=== PATIENT | female | born 1965 | race Caucasian/White ===

== ENCOUNTER 2017-02-04 11:15 | Emergency (ER) | payer OTHER ==
[~2017-02-04] VITALS: Ht 162.6 cm; Wt 60.2 kg
[2017-02-04 11:18] VITALS: TEMP 36.8; Ht 162.6 cm; Wt 60.2 kg
[2017-02-04] MEDS ORDERED: ONDANSETRON INJ 2 MG/ML 2 ML VIAL IV STA (12:15)
[2017-02-04] MEDS ORDERED: SODIUM CHLORIDE 0.9% 1000ML 1,000 ML IV ONE (12:15)
[2017-02-04] MEDS ORDERED: ALPR1TAB3 PO (12:25)
[2017-02-04] MEDS ORDERED: TRAZ100T29 PO (12:25)
[2017-02-04 12:40] LABS: BASO % 0.4 %; BASO ABS # 0.03 K/uL (0-0.2); COMPLETE YES; EOS % 1.8 %; HEMATOCRIT 39.6 % (37-47); IG% 0.1 %; LYMPH % 25.9 %; LYMPH ABS # 2.01 K/uL (1.2-3.4); MEAN CELL VOLUME 94.3 fL (80-100); MEAN CORPUSCULAR HEMOGLOBIN 32.1 pg (25-34); MEAN CORPUSCULAR HGB CONC 34.1 g/dl (32-36); MEAN PLATELET VOLUME 10.4 fL (7.4-10.4); MONO % 8.5 %; NEUT % 63.3 %; PLATELET COUNT 275 K/uL (130-400); WHITE BLOOD COUNT 7.76 K/uL (4.8-10.8)
[2017-02-04 12:55] LABS: ALT/SGPT 22 U/L (12-78); AST/SGOT 21 U/L (15-37); BLOOD UREA NITROGEN 15 mg/dl (7-18); BUN/CREATININE RATIO 22.1 (10-20); CALCIUM 8.5 mg/dl (8.5-10.1); CARBON DIOXIDE 25 mmol/L (21-32); CHLORIDE 108 mmol/L (98-107); CREATININE 0.67 mg/dl (0.60-1.20); GLUCOSE 88 mg/dl (70-99); MAGNESIUM 2.5 mg/dl (1.8-2.4); POTASSIUM 3.6 mmol/L (3.5-5.1); SODIUM 141 mmol/L (136-145)
[2017-02-04 13:02] LABS: ALKALINE PHOSPHATASE 52 U/L (45-117)
[2017-02-04 13:08] LABS: URINE APPEARANCE CLEAR (CLEAR); URINE BILIRUBIN NEG (NEG); URINE COLOR YELLOW; URINE NITRITE NEG (NEG); URINE PH 5.5 (4.5-7.5); URINE SPECIFIC GRAVITY 1.023 (1.000-1.030); UROBILINOGEN NEG (NEG)
[2017-02-04 13:25] LABS: MANUAL MICROSCOPIC REQUIRED? NO; REVIEW REQ? NO
[2017-02-04] MEDS ORDERED: ACETAMINOPHEN 500 MG TAB PO STA (13:45)
--- NOTE | 2017-02-04 14:26 | DIAGNOSTIC IMAGING REPORT ---
CT HEAD WITHOUT CONTRAST (CT) CLINICAL HISTORY: Headache, right arm tremor, nausea and vomiting, hypoglycemia. COMPARISON STUDY: No previous studies for comparison. TECHNIQUE: Axial CT of the brain is performed from the vertex to the skull base. IV contrast was not administered for this examination. CT DOSE: 638.56 mGycm FINDINGS: No intra or extra-axial mass lesions are visualized. There is no CT evidence of acute cortical infarction. There is no evidence of midline shift. There is no acute hemorrhage. No calvarial fractures are visualized. There is no evidence of pathologic ventricular dilatation. There is no evidence of acute sinusitis IMPRESSION: Normal noncontrast head CT for age. Electronically signed by: Sebastian Pleitez M.D. 02/04/2017 2:24 PM Dictated Date/Time: 02/04/2017 2:23 PM
[2017-02-04] MEDS ORDERED: ONDA4TAB46 PO (15:25)
[2017-02-04 16:11] VITALS: BP 110/70; PULSE 64; O2SAT 96
--- NOTE | 2017-02-04 19:40 | EMERGENCY ROOM VISIT NOTE ---
ED Visit Note First contact with patient: 11:41 Chief Complaint: Low blood sugar. History of Present Illness: Ms. Turner is a 51-year-old white female who ambulates into the ED with multiple complaints of hypoglycemia, headache, nausea , vomiting, right upper extremity tremors. Historically patient is from the [facility] and is visiting her who recently took a job in this area. She reports she hasn't been seen recently at [facility], approximately one month ago, for complaints of headache, fatigue, right arm/hand weakness. After testing it was felt that she had a cervical radiculopathy. [place] [facility] requested her insurance to perform an MRI and they refused. She has not followed up with her primary care provider since this ED visit. Additionally patient goes on to report that she has a history of headaches for over a year. She was seen by her PCP and a scan of her brain was done; she does not remember if it was an MRI or CT scan and was reported as normal. She reports her primary care provider felt she might have an aneurysm which was not shown on her imaging study. Patient goes on to report that she continues to feel tired and fatigued since her last ED visit. 4 days ago she drove into the area and after arriving at her hotel her fatigue increased and she became nauseated and has had multiple episodes of vomiting over the last 4 days. She also reports with her vomiting she developed a right arm tremor that has been constant. She goes on to report that she is having a bifrontal headache. She has difficulty describing her discomfort. She rates her discomfort 6/10. The pain is nonradiating. This is not the worst headache of her life. This is not similar to her previous headaches. She has not taken any medications for pain or nausea/vomiting prior to arrival at the hospital. Her pain has been constant but has slightly waxed and waned in intensity. She continues to have her symptoms as noted above but also reports that with nausea and vomiting she also intermittently has had diaphoresis and she feels when she is walking she is leaning towards the left and feels like her balance is unstable.. Additionally she reports she has noted over the last few weeks approximately one hour after eating she checks her blood sugar; is in type II diabetic , and she describes her blood sugar levels as low. She reports she took it today before she was seen at the local urgent care center and it was 62. She denies vijay fevers, skin eruptions, skin color changes, dizziness, recent head trauma, visual changes, hearing changes, difficulty speaking, difficulty swallowing, difficulty coordinating body movements, neck pain/stiffness, upper respiratory tract symptoms, cough, wheezing, shortness of breath, palpitations, orthopnea, dependent edema, abdominal pain, diarrhea, constipation, rectal bleeding, black/tarry stools, urinary symptoms, hematuria, extremity weakness/ numbness/tingling. Review of Systems: As noted above in history of present illness. All body systems were reviewed and found to be negative as noted above. Past Medical History: As previously noted, borderline hypertension, asthma, bronchitis, seizure disorder gastric reflux, dyslipidemia, joint pains, posttraumatic stress disorder, depression, anxiety and status post hysterectomy. Current Medications: Trazodone, Xanax. Allergies to Medications: IV contrast agents, Bactrim, valproic acid. Social History: Patient is not employed; she feels safe in her home environment ; she admits to tobacco and alcohol use. Physical Examination: Vital Signs: Date Time Temp Pulse Resp B/P (MAP) Pulse Ox O2 Delivery O2 Flow Rate FiO2 02/04/17 16:11 64 18 110/70 96 02/04/17 14:39 75 16 130/95 97 Room Air 78 133/95 77 142/74 02/04/17 14:39 78 16 130/95 97 Room Air 02/04/17 12:41 77 16 136/80 02/04/17 11:18 36.8 96 20 157/94 96 Room Air GENERAL: 51-year-old female in mild distress due to symptoms, nontoxic-appearing , afebrile and hemodynamically stable. NEUROLOGICAL: Awake, alert and oriented to person, place and time. Answering questions appropriately and following commands. Normal gait. Good hand eye coordination. No focal motor or sensory deficits. Cranial nerves II through XII grossly intact. Pronator drift test negative. Good short-term and long- term recall. Able to spell backwards. SKIN: Warm, dry and pink. No soft tissue eruptions or trauma noted. HEENT: Atraumatic and normocephalic. No erythema or tenderness over the frontal or maxillary sinuses. External ears are nontender. Auditory canals are pink and patent. Tympanic membranes are pearly grant with normal light. PERRLA. EOMI without nystagmus. Sclera white and conjunctiva pink. Funduscopic examination is unremarkable with a normal-appearing optic disc and no signs of increased intracranial pressure. No drainage from naris. Airway is patent. Pharynx is nonerythematous or edematous. Speech normal. No lymphadenopathy. Trachea midline. No jugular venous distention. No carotid bruits. BACK: No tenderness over the bony cervical and thoracic spine. Full range of motion of the cervical spine. No meningismus. No CVA tenderness. THORAX: Lungs sounds are clear to auscultation and equal bilaterally with symmetrical chest wall. No wheezing, rales or rhonchi. No crepitus, tenderness , subcutaneous air or deformities noted. HEART: Regular rate and rhythm. No gallops, rubs or murmurs are appreciated. ABDOMEN: Flat, soft and nontender. Positive bowel sounds in all quadrants. No guarding, rigidity or organomegaly. EXTREMITIES: Moves all extremities well on command and with purpose. All distal neurovascular statuses are intact and equal bilaterally. No calf tenderness or cords. 4/5 muscle strength in all movements of the shoulder, elbow, forearm, wrists and hands. 4/5 muscle strength in all movements of the hip, knee, ankle and feet. Patient does have a tremor of the right upper extremity from the elbow to the hand. The tremor does resolve during muscle strength testing and intermittently when patient is distracted by questions or other physical examination but then returns. ED Course: Patient is assessed as noted above. Patient's medication list was reviewed. Laboratory testing: Test 02/04/17 11:50 02/04/17 12:20 02/04/17 12:25 02/04/17 13:35 Range/Units Bedside Glucose 92 94 70-90 mg/dl Urine Color YELLOW Urine Appearance CLEAR CLEAR Urine pH 5.5 4.5-7.5 Urine Specific [place] 1.023 1.000-1.030 Urine Protein NEG NEG Urine Glucose (UA) NEG NEG Urine Ketones NEG NEG Urine Occult Blood NEG NEG Urine Nitrite NEG NEG Urine Bilirubin NEG NEG Urine Urobilinogen NEG NEG Urine Leukocyte Esterase NEG NEG White Blood Count 7.76 4.8-10.8 K/uL Red Blood Count 4.20 4.2-5.4 M/uL Hemoglobin 13.5 12.0-16.0 g/dL Hematocrit 39.6 37-47 % Mean Corpuscular Volume 94.3 80-100 fL Mean Corpuscular Hemoglobin 32.1 25-34 pg Mean Corpuscular Hemoglobin Concent 34.1 32-36 g/dl Platelet Count 275 130-400 K/uL Mean Platelet Volume 10.4 7.4-10.4 fL Neutrophils (%) (Auto) 63.3 % Lymphocytes (%) (Auto) 25.9 % Monocytes (%) (Auto) 8.5 % Eosinophils (%) (Auto) 1.8 % Basophils (%) (Auto) 0.4 % Neutrophils # (Auto) 4.91 1.4-6.5 K/uL Lymphocytes # (Auto) 2.01 1.2-3.4 K/uL Monocytes # (Auto) 0.66 0.11-0.59 K/uL Eosinophils # (Auto) 0.14 0-0.5 K/uL Basophils # (Auto) 0.03 0-0.2 K/uL RDW Standard Deviation 47.6 36.4-46.3 fL RDW Coefficient of Variation 13.9 11.5-14.5 % Immature Granulocyte % (Auto) 0.1 % Immature Granulocyte # (Auto) 0.01 0.00-0.02 K/uL Sodium Level 141 136-145 mmol/L Potassium Level 3.6 3.5-5.1 mmol/L Chloride Level 108 98-107 mmol/L Carbon Dioxide Level 25 21-32 mmol/L Anion Gap 8.0 3-11 mmol/L Blood Urea Nitrogen 15 7-18 mg/dl Creatinine 0.67 0.60-1.20 mg/dl Est Creatinine Clear Calc Drug Dose 87.8 ml/min Estimated GFR () 119.6 Estimated GFR (Non- 103.2 BUN/Creatinine Ratio 22.1 10-20 Random Glucose 88 70-99 mg/dl Calcium Level 8.5 8.5-10.1 mg/dl Magnesium Level 2.5 1.8-2.4 mg/dl Total Bilirubin 0.3 0.2-1 mg/dl Direct Bilirubin < 0.1 0-0.2 mg/dl Aspartate Amino Transf (AST/SGOT) 21 15-37 U/L Alanine Aminotransferase (ALT/SGPT) 22 12-78 U/L Alkaline Phosphatase 52 45-117 U/L Total Protein 7.1 6.4-8.2 gm/dl Albumin 3.8 3.4-5.0 gm/dl Lipase 135 73-393 U/L EKG: Was read by myself and reviewed with Dr. Lord; shows normal sinus rhythm with a ventricular rate of 65 bpm. There is a sinus arrhythmia and an incomplete right bundle-branch block. Medical records were reviewed and no previous EKGs were found. There is no ischemic changes. Head CT: Was reviewed by myself and read by the radiologist and shows a normal noncontrast head CT for age. Patient was hydrated with normal saline and initially received 4 mg of Zofran IV for nausea and refused pain medications. On subsequent reevaluation she did accept 1 g of acetaminophen by mouth for her headache. Ambulation trial was performed and was negative. She was trialed on food and had no return of nausea/vomiting. Patient was reassessed multiple times during her stay in the emergency department. Patient's case was reviewed with Dr. Lord; we agreed on diagnostic approach, treatment, disposition and plan. Patient was educated about today's findings and instructed on her treatment plan ; she verbalizes understanding and agreement with this plan. Clinical Impression: Hypoglycemia. Right upper extremity tremor. Nausea/ vomiting. Headache. Decision-Makin-year-old female who presents for evaluation of hypoglycemia , headache, nausea/vomiting and right upper extremity tremor. She is afebrile, well appearing, and hemodynamically stable. Laboratory test are unremarkable and shows no signs of infection, electrolyte abnormality or metabolic disturbance. Head CT shows no signs of intracranial abnormalities including bleeding, mass effect and others. She has no signs of a sinus, dental, or ear infection and no evidence of meningismus. She is neurologically intact. I do not suspect a headache to be secondary to a subarachnoid hemorrhage, meningitis , encephalitis, or intracranial mass lesion. Disposition:: Patient was discharged to home in stable condition accompanied by her ; prior to departure she was reported that she was pain and symptom-free. Plan: Patient was encouraged use 650 mg of acetaminophen every 6 hours as needed for pain. Patient was prescribed Zofran 4 mg every 6 hours as needed for nausea/vomiting. Patient was encouraged use a bland diet for the next 48 hours and stay well hydrated. Patient was encouraged to monitor blood sugar and record her results and ongoing symptoms. Patient was encouraged to contact her PCP tomorrow morning and inform them of today's ED visit and request follow-up care and treatment and possible referral to neurology and/or endocrinology. Patient was encouraged return the ED for worsening/uncontrolled symptoms, fevers , any new abnormal neurological symptoms or any new/concerning symptoms.
== END 2017-02-04 16:13 | disposition home or self-care (01) ==
LOC: C.EDB 11:18
DX: E16.2 Hypoglycemia, unspecified (principal); R25.1 Tremor, unspecified; R11.2 Nausea with vomiting, unspecified; R51 Headache; J45.909 Unspecified asthma, uncomplicated; G40.909 Epilepsy, unspecified, not intractable, without status epilepticus; F32.9 Major depressive disorder, single episode, unspecified; Z72.0 Tobacco use; Z90.710 Acquired absence of both cervix and uterus; Z79.899 Other long term (current) drug therapy